=== PATIENT | female | born 2000 | race Caucasian/White ===

== ENCOUNTER 2019-02-18 05:44 | Emergency (ER) | payer MEDICAID ==
[~2019-02-18] VITALS: Ht 154.9 cm; Wt 78.0 kg
[2019-02-18] MEDS ORDERED: ACETAMINOPHEN 325MG TABLET PO ONE (08:30)
[2019-02-18 09:34] VITALS: BP 100/47
== END 2019-02-18 09:36 | disposition home or self-care (01) ==
LOC: ER 06:54
DX: S09.8XXA Other specified injuries of head, initial encounter (principal); W01.0XXA Fall on same level from slipping, tripping and stumbling without subsequent striking against object, initial encounter; Y93.89 Activity, other specified; Y92.89 Other specified places as the place of occurrence of the external cause; Y99.8 Other external cause status
CPT/HCPCS: 81025; 99283

== ENCOUNTER 2019-12-18 21:40 | Emergency (ER) | payer MEDICAID ==
[~2019-12-18] VITALS: Ht 152.4 cm; Wt 89.0 kg
[2019-12-18 23:24] VITALS: BP 129/74
== END 2019-12-18 23:26 | disposition home or self-care (01) ==
LOC: ER 21:40
DX: O26.893 Other specified pregnancy related conditions, third trimester (principal); S16.1XXA Strain of muscle, fascia and tendon at neck level, initial encounter; I49.9 Cardiac arrhythmia, unspecified; Z3A.33 33 weeks gestation of pregnancy; V49.49XA Driver injured in collision with other motor vehicles in traffic accident, initial encounter; Y93.89 Activity, other specified; Y92.89 Other specified places as the place of occurrence of the external cause; Y99.8 Other external cause status
CPT/HCPCS: 81025; 93005; 99283